=== PATIENT | male | born 1935 | race Caucasian/White ===

== ENCOUNTER 2019-08-20 17:04 | Observation (INO) ==
[2019-08-20] MEDS ORDERED: POTASSIUM CHLORIDE 20 MEQ/SWI 20 MEQ/100 ML IVPB IV PRN ×2 (17:15)
[2019-08-20] MEDS ORDERED: HUMULIN R 100 UNIT in NS 100 ML IV SCH (17:15)
[2019-08-20] MEDS ORDERED: HUMULIN R IV ONE (17:15)
[2019-08-20] MEDS ORDERED: SODIUM BICARBONATE 8.4% 100 MEQ in STERILE WATER INJ. 500 ML IV PRN (17:15)
[2019-08-20] MEDS ORDERED: SODIUM PHOSPHATE 30 MMOL in D5W 250 ML IV PRN (17:15)
[2019-08-20] MEDS ORDERED: POTASSIUM CHLORIDE 10% LIQUID PO PRN (17:15)
[2019-08-20] MEDS ORDERED: MAGNESIUM SULFATE 2 GM/S.W.I. 2 GM/50 ML IVPB IV PRN (17:15)
[2019-08-20] MEDS ORDERED: POTASSIUM CHLORIDE 20% LIQUID PO PRN (17:15)
[2019-08-20] MEDS ORDERED: NS 1,000 ML IV ONE ×2 (17:15→20:49)
--- NOTE | 2019-08-20 17:25 | PROVIDER DOCUMENTATION ---
HPI-General Adult - General Chief Complaint: DKA ALERT Stated Complaint: BS PROBLEMS Time Seen by Provider: 08/20/19 17:14 Source: patient Allergies/Adverse Reactions: Patient Allergies Allergy/AdvReac Type Severity Reaction Status Date / Time No Known Allergies Allergy Verified 10/06/17 09:40 Home Medications: Home Medication List Medication Instructions Recorded Confirmed Last Taken Type Acetaminophen E.r. [Tylenol 650 mg PO PRN PRN 10/06/17 10/07/17 Unknown History Arthritis] Amlodipine [Norvasc] 5 mg PO DAILY 10/06/17 10/07/17 10/06/17 22:00 History Aspirin [Ecotrin] 81 mg PO DAILY 10/06/17 10/07/17 10/06/17 22:00 History Clonidine [Catapres] 0.1 mg PO PRN PRN 10/06/17 10/07/17 Unknown History Finasteride 5 mg PO DAILY 10/06/17 10/07/17 10/06/17 22:00 History Levothyroxine [Synthroid] 75 microgm PO DAILY 10/06/17 10/07/17 Unknown History Losartan Potassium 100 mg PO DAILY 10/06/17 10/07/17 10/06/17 22:00 History Metoprolol Succinate E.r. [Toprol 100 mg PO DAILY 10/06/17 10/07/17 10/06/17 22:00 History Xl] Rivaroxaban [Xarelto] 15 mg PO DAILY 10/06/17 10/07/17 10/04/17 History Ropinirole [Requip] 2 mg PO DAILY 10/06/17 10/07/17 10/06/17 15:00 History - History of Present Illness -Gen Adult Nature of Presenting Problems: 83 yom presents with complaints elevated BG, increased thirst, polyuria. Denies ALL other symptoms including: CP< SOB< N/V/D, abdominal pain. He reports he was recently started on januvia for DM Location of Pain/Injury: reports: none Quality of Pain: reports: none Severity: reports: moderate Onset/Duration: reports: other (6 wks of elevated BG) Context/Activities at Onset: reports: none Modifying Factors: improves with: nothing Associated Symptoms: reports: denies symptoms Similar Symptoms Previously?: No Recently seen or treated by another doctor?: Yes - Diabetes Related Context Context: reports: high blood sugar. denies: unresponsive, prior DKA hospitalization Review of Systems - Adult - REVIEW OF SYSTEMS - ADULT Constitutional: reports: no symptoms reported. denies: see HPI, chills, fever, fatique, night sweats, weight gain, weight loss, other Eyes: reports: no symptoms reported. denies: see HPI, discharge, dry eyes, decreased vision, blurred vision, double vision, eye pain, redness, other Ears, Nose, Mouth & Throat: reports: no symptoms reported. denies: see HPI, ear discharge, ear pain, hearing loss, tinnitus, epistaxis, sinus problem, nose pain, loose teeth, mouth/dental pain, mouth swelling, hoarseness, throat pain, throat swelling, other Cardiovascular: reports: no symptoms reported. denies: see HPI, chest pain, edema, heart murmur, irregular heart rate, orthopnea, palpitations, poor circulation, PND, syncope, other Respiratory: reports: no symptoms reported. denies: see HPI, chronic cough, cough, dyspnea on exertion, excessive sputum production, hemoptysis, pleurisy, shortness of breath, wheezing, other Gastrointestinal: reports: no symptoms reported. denies: see HPI, abdominal pain, hematemesis, constipation, diarrhea, difficulty swallowing, frequent heartburn, nausea, poor appetite, rectal bleeding, vomiting, other Genitourinary: reports: see HPI, other (polyuria). denies: no symptoms reported, dysuria, discharge, frequency, flank pain, frequent UTI's, hematuria, hesitency, incontinence, urinary retention, urgency Musculoskeletal: reports: no symptoms reported. denies: see HPI, bone pain, back pain, frequent leg cramps, joint pain, joint swelling, muscle aches, muscle weakness, neck pain, other Integumentary: reports: no symptoms reported. denies: see HPI, hives, hair loss, itching, mole changes, nail changes, rash, skin sores/ulcer, skin thickening, other Neurological: reports: no symptoms reported. denies: see HPI, ataxia, dizziness/vertigo, headache/migraines, loss of balance, numbness, paresthesia, seizure, slurred speech, syncope, tremors, other Psychiatric: reports: no symptoms reported. denies: see HPI, anxiety, anti- depressant use, alcohol/drug dependence, depression, emotional problems, insomnia, panic attacks, suicidal thoughts, other Endocrine: reports: see HPI, increased thirst, polyuria. denies: no symptoms reported, change in skin pigment, excessive sweating, goiter, cold intolerance, heat intolerance, increased hunger, other Hematologic/Lymphatic: reports: no symptoms reported. denies: see HPI, blood clots, easy bruising, low blood count, lymphedema, prolonged bleeding, swollen lymph nodes, transfusions, other Allergic/Immunologic: reports: no symptoms reported. denies: see HPI, allergic reactions, allergic rhinitis, asthma, eczema, food allergy, frequent infections, hay fever, hives, positive PPD, urticaria, other Past History - Adult - PAST MEDICAL HISTORY-ADULT Review of Records: reports: Nursing Assessment Review, Social history reviewed & non-contributory. Physical Exam-General - PHYSICAL EXAM-ADULT Initial Vital Signs Reviewed: Yes - CONSTITUTIONAL General Appearance: appears well, alert, no apparent distress - EYES Eyes: PERRL/EOMI, pink conjunctivae - HEAD, EARS, NOSE, MOUTH & THROAT HENMT: normocephalic/atraumatic, moist mucous membranes, normal ENT inspection - NECK Neck: non-tender, full range of motion, supple - RESPIRATORY Respiratory: chest non-tender, lungs clear, normal breath sounds, no pleuratic chest pain, no respiratory distress, no accessory muscle use - CARDIOVASCULAR Cardiovascular: normal peripheral pulses, regular rate, rhythm, no edema, no gallop, no JVD - GASTROINTESTINAL (ABDOMEN) Abdominal Exam: normal bowel sounds, non tender, soft (even with deep palpation) , no organomegaly, no pulsatile mass - LYMPHATIC Lymphatic: no adenopathy - MUSCULOSKELETAL Back Exam: normal inspection, no CVA tenderness, no vertebral tenderness Extremity: normal range of motion, non-tender, normal gait, normal inspection Peripheral Pulses: radial (R): 2+, radial (L): 2+ - SKIN Integumentary: normal color, normal turgor, warm/dry - NEUROLOGIC Neurologic: grossly normal - PSYCHIATRIC Psych/Mental Status: normal mood/affect, oriented x 3 Progress - PLAN OF CARE/RESULTS Progress/Plan/Lab Results: Vital Signs - 8 hr 08/20/19 17:10 Temperature 97.5 F L Pulse Rate 72 Respiratory Rate 18 Blood Pressure 151/54 O2 Sat by Pulse Oximetry 99 Orders Category Date Time Status Cardiac Monitoring DIRECTED Care 08/20/19 17:15 Active ED: Urine Bedside NOW Care 08/20/19 17:15 Active FSBS [Finger Stick Blood Sugar (ED)] DIRECTED Care 08/20/19 17:13 Active FSBS/Accucheck Result Q15M Care 08/20/19 17:16 Active FSBS/Accucheck Result Q1H Care 08/20/19 17:15 Active Hypoglycemia/FSBS <50 or Range of 50-70 PRN Care 08/20/19 17:16 Active Notify Physician ORDERED Care 08/20/19 17:16 Active Saline Loc DIRECTED Care 08/20/19 17:16 Active Saline Loc NOW Care 08/20/19 17:15 Active Vital Signs Order Q1H Care 08/20/19 17:15 Active ABG [RESP] Routine Lab 08/20/19 17:15 Ordered ACETONE SERUM [CHEM] Stat Lab 08/20/19 17:15 Uncollected CBC WITH NO DIFF [HEME] Stat Lab 08/20/19 17:15 Uncollected CK PROFILE [SP CHEM] Stat Lab 08/20/19 17:15 Uncollected COMPREHENSIVE METABOLIC PANEL [CHEM] Stat Lab 08/20/19 17:15 Uncollected LACTATE, PLASMA [CHEM] Stat Lab 08/20/19 17:15 Uncollected MAGNESIUM [CHEM] Stat Lab 08/20/19 17:15 Uncollected PHOSPHORUS [CHEM] Stat Lab 08/20/19 17:15 Uncollected POTASSIUM [CHEM] Timed Lab 08/20/19 17:15 Uncollected TROPONIN T Stat Lab 08/20/19 17:15 Uncollected URINALYSIS [URINALYSIS] Stat Lab 08/20/19 17:15 Uncollected URINE DRUG SCREEN PL Stat Lab 08/20/19 17:15 Uncollected URINE DRUG SCREEN Stat Lab 08/20/19 17:15 Uncollected 0.9% Sodium Chloride Inj [Ns] 1,000 ml Med 08/20/19 17:15 Ordered IV 500 mls/hr 0.9% Sodium Chloride Inj [Ns] 1,000 ml Med 08/20/19 17:15 Active IV 999 mls/hr 0.9% Sodium Chloride Inj [Ns] 100 ml Med 08/20/19 17:15 Ordered Insulin Human Regular [Humulin R] 100 unit IV Per Protocol mls/hr Insulin Human Regular [Humulin R] Med 08/20/19 17:15 Discontinued 6.8 unit IV ONCE ONE Magnesium Sulfate 2 gm/S.w.i. Med 08/20/19 17:15 Ordered 2 gm in 50 ml IV ONCE PRN Potassium Chloride 10% Liquid Med 08/20/19 17:15 Ordered 20 meq PO ONCE PRN PRN Potassium Chloride 20 Meq/Swi Med 08/20/19 17:15 Ordered 20 meq in 100 ml IV ONCE PRN Potassium Chloride 20 Meq/Swi Med 08/20/19 17:15 Ordered 20 meq in 100 ml IV ONCE PRN Potassium Chloride 20% Liquid Med 08/20/19 17:15 Ordered 40 meq PO ONCE PRN PRN Sodium Bicarbonate 8.4% 100 meq Med 08/20/19 17:15 Ordered Water, Sterile Inj [Sterile Water Inj] 500 ml IV ONCE PRN Sodium Phosphate 30 mmol Med 08/20/19 17:15 Ordered Dextrose 5%-Water Inj [D5w] 250 ml IV ONCE PRN Hypoglycemia Stat Oth 08/20/19 17:15 Ordered EKG [EKG] Routine Ther 08/20/19 17:15 Ordered Result Diagrams: 08/20/19 18:06 08/20/19 18:06 - CONSULTS/PCP/HOSPITALIST Notification #1 *Consult/PCP/Hospitalist*: dr. sharma Time Discussed: 20:48 Reason/Comments: stop insulin gtt Consult Disposition: Admit Departure - Departure Date of Disposition Decision: 08/20/19 Time of Disposition Decision: 20:49 DIAGNOSIS: Hyperglycemia due to type 2 diabetes mellitus, KAY (acute kidney injury) Disposition: ADMITTED INPATIENT 09 Certified Medical Emergency: Emergent Condition: Stable Referrals and Follow-Ups: Colt Goldstein MD [Primary Care Provider] - - Critical Care Note This patient required my direct & personal management of CC.: No Attestation - Physician/ NONI Attestation Patient care was provided by Advanced Practice Provider:: Yes Advanced Practice Provider:: Radha Brandon Advanced Practice Provider documentation review:: The Mid-level provider documentation, treatment plan and medical decision making was reviewed by the physician who agrees with all treatment and medical decision making by the MLP. The physician spent face to face time with patient:: No Advanced Practice Provider documentation review:: Supervising physician onsite and consulted in the evaluation and care of this patient. The physician did not have a face to face encounter with the patient.
[2019-08-20 17:44] LABS: I-STAT BE -2 mmoll (-2-3); I-STAT HEMOGLOBIN 11.9 g/dL (11.5-17.5); I-STAT K 3.8 mmoll (3.5-4.9); I-STAT SODIUM 130 mmoll (138-146); I-STAT TCO2 25 mmoll (23-27)
[2019-08-20 17:50] LABS: I-STAT GLUCOSE 557 mg/dL (70-105)
[2019-08-20 18:16] LABS: HEMATOCRIT 35.3 % (42.0-52.0); HEMOGLOBIN 12.6 g/dL (14.0-18.0); MCH 29.9 PG (27-31); MCHC 35.7 g/dL (33-37); MCV 83.8 FL (81-99); MPV 10.7 FL (7.4-10.4); RBC 4.21 XMIL (4.7-6.1); RDW 12.7 % (11.5-14.5); WBC 6.22 X1000 (4.8-10.8)
[2019-08-20] MEDS ORDERED: HUMULIN R (PARKWAY) ONE ×2 (18:31→18:34)
[2019-08-20] MEDS ORDERED: NS 100 ML ONE (18:31)
[2019-08-20 18:39] LABS: ESTIMATED GFR 32
[2019-08-20 18:57] LABS: AGAP 16; ALBUMIN 4.8 g/dL (3.5-5.0); ALKALINE PHOSPHATASE 70 U/L (32-122); BUN 33 mg/dL (8-22); CALCIUM 9.4 mg/dL (8.8-10.2); CHLORIDE 92 mmol/L (98-107); CK PROFILE 117 U/L (24-204); COSMO 296; GLUCOSE 542 mg/dL (70-104); GOT 17 U/L (10-34); GPT 14 U/L (10-44); MAGNESIUM 1.2 mg/dL (1.5-2.7); PHOSPHORUS 4.1 mg/dL (2.7-4.5); POTASSIUM 4.1 mmol/L (3.5-5.1); SODIUM 132 mmol/L (136-145); TCO2 24 mmol/L (25-35); TOTAL PROTEIN 6.9 g/dL (6.3-8.3)
[2019-08-20 19:02] LABS: ACETONE SERUM NEGATIVE (NEGATIVE)
[2019-08-20] MEDS ORDERED: MAGNESIUM SULFATE 1 GM/D5W 1 GM/100 ML IVPB IV ONE (19:22)
[2019-08-20 20:09] LABS: URINE SOURCE CLEAN CATCH
[2019-08-20 20:21] LABS: BILIRUBIN URINE NEGATIVE (NEGATIVE); BLOOD URINE NEGATIVE (NEGATIVE); COLOR YELLOW; GLUCOSE URINE >1000 mg/dL (NEGATIVE); KETONE URINE NEGATIVE (NEGATIVE); LEUKOCYTES URINE NEGATIVE (NEGATIVE); NITRITE URINE NEGATIVE (NEGATIVE); PROTEIN URINE NEGATIVE (NEGATIVE); SP GRAVITY URINE 1.017; TURBIDITY URINE CLEAR (CLEAR); UR AMPHETAMINES QUAL NONE DETECTED (NONE DETECT); UR BARBITUATES QUAL NONE DETECTED (NONE DETECT); UR BENZODIAZEPIN QUAL NONE DETECTED (NONE DETECT); UR CANNABINOIDS QUAL NONE DETECTED (NONE DETECT); UR COCAINE QUAL NONE DETECTED (NONE DETECT); UR METHADONE QUAL NONE DETECTED (NONE DETECT); UR METHAMPHETAMINE QUAL NONE DETECTED (NONE DETECT); UR OPIATES QUAL NONE DETECTED (NONE DETECT); UR OXYCODONE QUAL NONE DETECTED (NONE DETECT); UR PCP QUAL NONE DETECTED (NONE DETECT); UR PROPOXYPHENE QUAL NONE DETECTED (NONE DETECT); UR TCA QUAL NONE DETECTED (NONE DETECT); UROBILINOGEN URINE NORMAL (NORMAL)
[2019-08-20 20:22] LABS: UR EPITHELIAL CELLS <10 /HPF (<10); URINE BACTERIA NEGATIVE /HPF; URINE RBC <10 /HPF (<10); URINE WBC <10 /HPF (<10)
[2019-08-20] MEDS ORDERED: HUMULIN R (PARKWAY) SUBQ ONE (21:41)
[2019-08-20] MEDS: NS 1,000 ML IV SCH (21:58)
[2019-08-20] MEDS: HUMULIN R (PARKWAY) SUBQ SCH (22:17)
[2019-08-21] MEDS ORDERED: REQUIP PO SCH (00:30)
--- NOTE | 2019-08-21 07:02 | EKG Report ---
Test Performed on : 04/23/2011 3:29:22 PM Test Reason : [facility] Blood Pressure : / mmHG Vent. Rate : 070 BPM Atrial Rate : 070 BPM P-R Int : 164 ms QRS Dur : 120 ms QT Int : 386 ms P-R-T Axes : 067 089 078 degrees QTc Int : 416 ms Sinus rhythm. with marked sinus arrhythmia. Right bundle branch block Abnormal ECG No previous ECGs available Confirmed by Aroldo RASMUSSEN, Del ([id number]) on 08/24/2019 8:46:40 AM
[2019-08-21] MEDS ORDERED: TYLENOL ARTHRITIS PO PRN (07:46)
[2019-08-21] MEDS ORDERED: CELEBREX PO PRN (07:46)
[2019-08-21] MEDS: HUMULIN R (PARKWAY) SUBQ SCH ×2 (07:52→10:59)
[2019-08-21] MEDS ORDERED: NS 1,000 ML IV SCH (08:00)
[2019-08-21 08:06] VITALS: BP 128/54
[2019-08-21] MEDS ORDERED: TOPROL XL PO SCH (09:00)
[2019-08-21] MEDS ORDERED: NORVASC PO SCH (09:00)
[2019-08-21] MEDS ORDERED: ASPIRIN EC PO SCH (09:00)
[2019-08-21] MEDS ORDERED: PROSCAR PO SCH (09:00)
[2019-08-21] MEDS ORDERED: JANUVIA PO SCH (09:00)
[2019-08-21 09:58] LABS: HEMATOCRIT 31.8 % (42.0-52.0); MCH 29.6 PG (27-31); MCHC 34.6 g/dL (33-37); MCV 85.7 FL (81-99); MPV 10.7 FL (7.4-10.4); RBC 3.71 XMIL (4.7-6.1); RDW 12.9 % (11.5-14.5); WBC 5.1 X1000 (4.8-10.8)
[2019-08-21 10:05] LABS: CREATININE 1.4 mg/dL (0.7-1.2); MAGNESIUM 1.4 mg/dL (1.5-2.7); POTASSIUM 3.9 mmol/L (3.5-5.1); TOTAL BILIRUBIN 0.7 mg/dL (0.20-1.00); TOTAL PROTEIN 6.1 g/dL (6.3-8.3)
--- NOTE | 2019-08-21 12:52 | HISTORY AND PHYSICAL ---
ADDENDUM: Patient seen and examined. Full note dictated and discussed with nurse practitioner. Patient presented to the hospital with elevated blood sugars. Creatinine was noted to be 2.0 with his baseline around 1.3. We are going to admit him to the hospital, IV fluids and follow. cc: Xavier Truong MD
--- NOTE | 2019-08-21 13:19 | DISCHARGE SUMMARY ---
ADMISSION DATE: 08/20/2019 DISCHARGE DATE: 08/21/2019 DISCHARGE DIAGNOSES: 1. Acute on chronic renal failure, improved. 2. Volume depletion, improved. 3. Hyperglycemia, secondary to volume depletion as well as dietary issues. 4. Hypertension, stable. 5. Hypothyroidism. CONSULTATIONS: None. PROCEDURES: None. BRIEF HOSPITAL COURSE: Patient is an 84-year-old male who presented to the hospital due to hyperglycemia. Currently, he is improved. He is in no distress. His blood sugars are much improved. DISPOSITION: We are going to discharge the patient home. Discussed with him the importance of following up with his primary care regarding his elevation in his creatinine. We did give him 1.25 of glyburide if his blood sugars are greater than 200. He will take this once a day until he follows up with his primary care. The patient understands. Greater than 30 minutes was spent in total care. cc: Xavier Truong MD
[2019-08-21] MEDS ORDERED: XARELTO PO SCH (17:00)
[2019-08-21] MEDS ORDERED: DESYREL PO SCH (21:00)
[2019-08-21] MEDS ORDERED: LIPITOR PO SCH (21:00)
[2019-08-22] MEDS ORDERED: PRILOSEC PO SCH (07:00)
[2019-08-22] MEDS ORDERED: SYNTHROID PO SCH (07:00)
--- NOTE | 2019-08-28 19:22 | HISTORY AND PHYSICAL ---
CHIEF COMPLAINT: Elevated blood sugar. HISTORY OF PRESENT ILLNESS: The patient is an 83-year-old male who presented to the ER with elevated blood sugars, increased thirst, polyuria. He states he was recently started on Januvia, but does not think it is helping. ALLERGIES: No known drug allergies. MEDICATIONS: Tylenol, Norvasc 5, aspirin 81, clonidine 0.1, finasteride 5, Synthroid 75, metoprolol 100, losartan 100, Xarelto 15, Requip 2. REVIEW OF SYSTEMS: As noted above. The patient denies dysuria. He does have polyuria. He denies cough, congestion, fevers and chills. Denies dysuria. No frequency or urgency. Denies hesitancy. Denies headaches, blurred vision, change in vision. Denies any syncope or presyncope. Denies any chest pain or palpitations. Denies any focalized weakness. Denies any diarrhea, constipation, melena or hematochezia. PAST MEDICAL HISTORY: Significant for hypertension and diabetes. FAMILY HISTORY: Positive for hypertension. SOCIAL HISTORY: The patient is retired. PHYSICAL EXAMINATION: VITAL SIGNS: Temperature 97.5 degrees, pulse 72, respiratory rate 18, BP 151/54. GENERAL: The patient is awake, alert, very pleasant. He is in no respiratory distress. HEENT: Normocephalic. NECK: Supple. CARDIOVASCULAR: Regular rhythm and rate. CHEST: Clear. ABDOMEN: Soft, nondistended. EXTREMITIES: Moves all extremities. NEUROLOGIC: No focal neurological changes. ASSESSMENT: 1. Diabetes with poor control, with glucose of 542. 2. Hyponatremia. Actually corrects to normal secondary to his blood sugars. 3. Hypertension. 4. Acute kidney injury. We will continue to follow. 5. Volume depletion secondary to elevated blood sugars. PLAN: We are going to admit the patient to the hospital, place him on insulin, adjust his blood sugar medications, follow his blood pressures, give him IV fluids to assist his kidney function, and we will follow. cc: Xavier Truong MD
== END 2019-08-21 11:09 | disposition home or self-care (01) ==
LOC: P.ED 17:04 → P.MEDSURG 17:04
PROVIDERS: ATTEND Family Medicine